=== PATIENT | male | born 1965 | race Caucasian/White ===

== ENCOUNTER → 2019-02-10 | Day surgery (SDC) | payer BC ==
[~2019-02-10] MED LIST: HYOSCYAMINE 0.125 MG TAB ONE; LIDOCAINE HCL 2% LOCAL INJ 5 ML SDV VIAL INJ ONE; MIDAZOLAM HCL 2 MG/2 ML VIAL ONE; PROPOFOL IV EMULSION 10 MG/ML 20 ML VIAL ONE; PROPOFOL IV EMULSION 10 MG/ML 50 ML VIAL ONE; SYNTHROID75 MCG PO
[2019-02-10 11:15] VITALS: BP 113/80
--- NOTE | 2019-02-10 11:26 | Operative Report ---
DATE OF PROCEDURE: 02/10/2019 SURGEON: Rodrigo Paez MD PROCEDURE: Colonoscopy with polypectomy. ADDITIONAL REFERRING PHYSICIAN: Dr. Kimberlee Carrero. INDICATIONS FOR PROCEDURE: Colorectal cancer screening. MEDICATIONS: The patient was done under MAC, please see anesthesiologist's note. PROCEDURE IN DETAIL: With the patient in left lateral decubitus position, the flexible fiberoptic Olympus colonoscope was inserted into the rectum with ease and advanced all the way to the cecum. The mucosa overlying the cecum appeared to be within normal limits. The scope was then withdrawn slowly and one polyp was snared. One polyp was hot biopsied from the ascending colon. Approximately, 1 cm sessile polyp was removed per snare electrocautery from the hepatic flexure and site was hemoclipped and additional approximately 1.2 cm polyp from the distal transverse colon that was removed per snare electrocautery and site was hemoclipped x2. One polyp was snared from the descending colon. The sigmoid colon appeared to be within normal limits. One polyp was snared and 5 polyps were hot biopsied from the rectum. The scope was then retroflexed into the distal rectum; small internal hemorrhoids were noted, none of which was actively bleeding. The scope was then straightened out, it was subsequently withdrawn. The patient tolerated the procedure well. IMPRESSION: 1. Ascending colon polyps x2, one snared and one hot biopsied. 2. Hepatic flexure polyp, approximately 1 cm in size, sessile, removed per snare electrocautery and site hemoclipped. 3. Transverse colon polyp, approximately 1.2 cm in size, sessile, and removed per snare electrocautery and site hemoclipped x2. 4. Descending colon polyp, snared. 5. Rectal polyps x6, one snared and 5 hot biopsied. 6. Internal hemorrhoids, none actively bleeding. PLAN: Follow up histology. Initiate high-fiber, low-fat diet. Initiate high-fiber supplement. A total of 11 polyps were removed. The patient might benefit from a followup colonoscopy in one year. Rodrigo Paez MD [facility] /[id number] cc: MD Gerson Mojica MD
--- OUTSIDE RECORDS SUMMARY | 2019-02-10 12:01 | XMS REPORT ---
Author Author Admin, [place] Organization [facility] Address [address] [address] Phone Allergies, Adverse Reactions, Alerts Allergy Name Reaction Description Start Date Severity Status Provider BENADRYCristela hives, throat swelling Critical Active Dariel Collins MD Conditions or Problems Problem Name Problem Code Onset Date Status Entry Date Provider Comment Standard Description Annotate Attention-deficit hyperactivity disorder, combined type Active Patricia Castillo PhD GENERALIZED ANXIETY DISORDER Active Dariel Collins MD Generalized anxiety disorder R/O ADHD, combined ICD-314.01 Inactive Patricia Castillo PhD Hx of ADHD ICD-V11.8 Inactive Dariel Collins MD Mood Disorder, NOS ICD-296.90 Inactive Dariel Collins MD R/O ADHD, combined 314.01 Resolved Patricia Castillo PhD Attention deficit disorder of childhood with hyperactivity Hx of ADHD V11.8 Resolved Dariel Collins MD Personal history of other mental disorders Mood Disorder, NOS 296.90 Resolved Dariel Collins MD Unspecified episodic mood disorder Medication List Medication Instructions Start Date Stop Date Generic Name NDC Status Provider Patient Instruction DOXEPIN HCL 25 MG ORAL CAPSULE Take 1 tablet by mouth at bedtime as needed for sleep. DOXEPIN HCL 27799445254 Active Dariel Collins MD Active ADDERALL 20 MG ORAL TABLET Take one tablet by mouth twice a day. AMPHETAMINE-DEXTROAMPHETAMINE 39661493789 Active Dariel Collins MD Active VIIBRYD 20 MG ORAL TABLET Take 1 tablet by mouth daily. VILAZODONE HCL 46533374492 Active Dariel Collins MD Active DOXEPIN HCL 10 MG ORAL CAPSULE Take 1 tablet by mouth at bedtime as needed for sleep. DOXEPIN HCL 10 MG ORAL CAPSULE [id number] DOXEPIN HCL Inactive SILENOR 6 MG ORAL TABLET Take 1 tablet by mouth at bedtime as needed for sleep. SILENOR 6 MG ORAL TABLET DOXEPIN HCL Inactive TRILEPTAL 150 MG ORAL TABLET Take one tablet by mouth twice a day. TRILEPTAL 150 MG ORAL TABLET [id number] OXCARBAZEPINE Inactive TRINTELLIX 10 MG ORAL TABLET Take 1 tablet by mouth daily. TRINTELLIX 10 MG ORAL TABLET VORTIOXETINE HBR Inactive DOXEPIN HCL 10 MG ORAL CAPSULE Take 1 tablet by mouth at bedtime as needed for sleep. DOXEPIN HCL 98641807491 No Longer Active Dariel Collins MD Active SILENOR 6 MG ORAL TABLET Take 1 tablet by mouth at bedtime as needed for sleep. DOXEPIN HCL 64843108314 No Longer Active Dariel Collins MD Active TRILEPTAL 150 MG ORAL TABLET Take one tablet by mouth twice a day. OXCARBAZEPINE 64180234914 No Longer Active Dariel Collins MD Active TRINTELLIX 10 MG ORAL TABLET Take 1 tablet by mouth daily. VORTIOXETINE HBR 35929228917 No Longer Active Dariel Collins MD Active Vital Signs Date Name Value Unit Range Description blood pressure, diastolic 82 mm[Hg] BP gutierrez blood pressure, systolic 128 mm[Hg] BP sys height E&M 69 [in_us] Bdy height pulse rate E&M 55 /min Heart rate weight E&M 237.25 [lb_av] Weight Measured blood pressure, diastolic 85 mm[Hg] BP gutierrez blood pressure, systolic 165 mm[Hg] BP sys height E&M 69 [in_us] Bdy height pulse rate E&M 91 /min Heart rate weight E&M 241.25 [lb_av] Weight Measured blood pressure, diastolic 77 mm[Hg] BP gutierrez blood pressure, systolic 123 mm[Hg] BP sys height E&M 69 [in_us] Bdy height pulse rate E&M 91 /min Heart rate weight E&M 242.40 [lb_av] Weight Measured blood pressure, diastolic 85 mm[Hg] BP gutierrez blood pressure, systolic 139 mm[Hg] BP sys height E&M 69 [in_us] Bdy height pulse rate E&M 87 /min Heart rate weight E&M 247.50 [lb_av] Weight Measured blood pressure, diastolic 77 mm[Hg] BP gutierrez blood pressure, systolic 122 mm[Hg] BP sys height E&M 69 [in_us] Bdy height pulse rate E&M 84 /min Heart rate weight E&M 256 [lb_av] Weight Measured blood pressure, diastolic 77 mm[Hg] BP gutierrez blood pressure, systolic 136 mm[Hg] BP sys height E&M 69 [in_us] Bdy height pulse rate E&M 89 /min Heart rate weight E&M 254.50 [lb_av] Weight Measured Diagnostic Results Date Name Value Unit Range Description Lab Report: [id number] 7+Alc-Unbund, Amphetamines Confirmation, Ur, [id number] 7 ... - Chemistry cannabinoid screen, urine Negative ng/mL Cutoff=50 Lab Report: [id number] 7+Alc-Unbund, Amphetamines Confirmation, Ur, [id number] 7 ... - Toxicology benzodiazepine screen, urine Negative Buypgw=918 phencyclidine screen, urine Negative ng/mL Cutoff=25 amphetamine screen, urine Positive Fvgzqn=3908 cocaine, urine Negative Fmhmaq=402 barbiturates screen, urine Negative Vkzyrk=395 opiates, urine, semiquantitative Negative Ftparx=964 Encounters Date Encounter Provider Code Facility 08:19:50 CDT Est Patient Exp Problem - 42815 Dariel Collins MD CPT-68384 [facility] 12:25:27 CDT Est Patient Exp Problem - 43066 Dariel Collins MD CPT-82836 [facility] 09:22:38 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 Est Patient Exp Problem - 03059 Dariel Collins MD CPT-16211 [facility] 08:26:40 [employer] 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 Est Patient Exp Problem - 55170 Dariel Collins MD CPT-28979 [facility] 08:24:17 G[employer] 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
== END | disposition home or self-care (01) ==
LOC: OR 11:50
PROVIDERS: ATTEND Internal Medicine Gastroenterology
DX: Z12.11 Encounter for screening for malignant neoplasm of colon (principal); D12.2 Benign neoplasm of ascending colon; D12.3 Benign neoplasm of transverse colon; D12.4 Benign neoplasm of descending colon; K62.1 Rectal polyp; E03.9 Hypothyroidism, unspecified; R03.0 Elevated blood-pressure reading, without diagnosis of hypertension; Z01.810 Encounter for preprocedural cardiovascular examination; Z88.8 Allergy status to other drugs, medicaments and biological substances; Z68.36 Body mass index [BMI] 36.0-36.9, adult; Z87.891 Personal history of nicotine dependence
CPT/HCPCS: 45384; 45385; 93005; J2001; J2250; J2704 ×2; 45378